=== PATIENT | female | born 1990 | race Two or more races ===

== ENCOUNTER 2019-10-24 16:19 | Outpatient (CLI) | payer OTHER | END 2019-10-24 16:25 | disposition home or self-care (01) | LOC: RAD 16:19 | PROVIDERS: ATTEND Chiropractor | DX: M54.5 Low back pain (principal); M54.2 Cervicalgia; M99.01 Segmental and somatic dysfunction of cervical region; M99.02 Segmental and somatic dysfunction of thoracic region; M99.03 Segmental and somatic dysfunction of lumbar region ==